=== PATIENT | male | born 2000 | race African-American/Black ===

== ENCOUNTER 2024-11-07 12:28 | Inpatient (IN) | payer SELFPAY ==
[2024-11-07 12:47] LABS: Absolute Basophils 0.1 K/uL (0-0.5); Absolute Lymphocytes (CBC) 1.6 K/uL (0.7-4.9); Absolute Monocytes 1.5 K/uL (0.1-1.3); Absolute Neutrophil 13.4 K/uL (1.8-8.0); Basophils % 0.8 % (0-1.3); Eosinophils % 0.1 % (0-4.4); Hemoglobin 15.6 g/dL (13.6-17.9); Lymphocytes % 9.7 % (15.3-44.8); MCH 29.8 pg (27.0-35.0); MCHC 31.9 g/dL (32.0-36.0); MCV 93.5 fL (80-100); MPV 7.1 fL (7.6-11.3); Monocytes % 9.2 % (3.3-12.3); Neutrophils % 80.2 % (41.7-73.7); Platelets 398 thou/uL (152-406); RBC Red Blood Cell Count 5.24 M/uL (4.33-5.43); Red Cell Distribution Width 14.2 % (12.1-15.2)
[2024-11-07 12:53] LABS: PT Prothrombin Time 13.7 SECONDS (9.4-12.5); Protime INR 1.23
[2024-11-07] MEDS ORDERED: MIDAZOLAM HCL 5 ML ONE (13:04)
[2024-11-07] MEDS ORDERED: NA CHLORIDE 0.9% 2,000 ML ONE (13:05)
[2024-11-07 13:12] LABS: Specific Gravity > 1.030 (1.005-1.030); Sqamous Epithelial None Seen /HPF (None Seen); Urine Bacteria None Seen /HPF (<20); Urine Bilirubin NEGATIVE (Negative); Urine Blood 2+ (Negative); Urine Clarity Turbid (Clear); Urine Color Yellow (Yellow); Urine Culture Reflex Order NOT NEEDED; Urine Glucose NEGATIVE (Negative); Urine Ketones 2+ (Negative); Urine Microscopic Reflex YN ORDER UMIC; Urine Mucus 2+ /HPF (None Seen); Urine Nitrite NEGATIVE (Negative); Urine Protein 2+ (Negative); Urine Urobilinogen Normal (Normal); Urine WBC <5 /HPF (<5)
[2024-11-07 13:17] LABS: Barbiturates NEGATIVE (NEGATIVE); Benzodiazepines NEGATIVE (NEGATIVE); Cocaine NEGATIVE (NEGATIVE); METHAMPHETAM NEGATIVE (NEGATIVE); Methadone NEGATIVE (NEGATIVE); Opiates NEGATIVE (NEGATIVE); Phencyclidine NEGATIVE (NEGATIVE); THC Cannibis POSITIVE (NEGATIVE)
[2024-11-07 13:17] LABS: ALT/SGPT 40 U/L (16-61); AST/SGOT 91 U/L (15-37); Albumin 4.3 g/dL (3.4-5.0); Alkaline Phosphatase 89 U/L (45-117); Anion Gap 27.5 mEq/L (5.0-15.0); BUN Blood Urea Nitrogen 21 mg/dL (7-18); Bicarbonate 11 mEq/L (21-32); Bilirubin Direct 0.4 mg/dL (0-0.2); Bilirubin Indirect, Calculated 1.3 mg/dL (0.2-0.8); Bilirubin Total 1.7 mg/dL (0.2-1.0); Creatine Phosphokinase 5483 U/L (39-308); Globulin 4.4 g/dL (2.3-3.5); Glomerular Filtration Rate 42 ml/min (=/>90); Glucose Level 234 mg/dL (74-106); Potassium 4.5 mEq/L (3.5-5.1); Protein, Total 8.7 g/dL (6.4-8.2); Sodium Level 136 mEq/L (136-145)
--- NOTE | 2024-11-07 13:44 | RAD REPORT ---
EXAMINATION: CT HEAD WITHOUT CONTRAST CLINICAL INDICATION: Male, 23 years old.agitated, AMS TECHNIQUE: Axial CT images from the skull base to the vertex without intravenous contrast. Coronal an d sagittal reformatted images were created from the data set. One or more of the following dose reduction techniques were used: Automated exposure control, adjustment of the mA and/or kV according to patient size, and/or iterative reconstruction. Unless otherwise specified, incidental findings do not require dedicated imaging follow-up. [id number]. COMPARISON: No prior exam. FINDINGS: INTRACRANIAL: No acute intracranial hemorrhage. No hydrocephalus. No mass effect or midline shift. No significant white matter disease VASCULATURE: No visualized abnormalities in the arteries or dural venous sinuses. SCALP/SKULL: No significant soft tissue or osseous abnormalities. SINUSES: The visualized paranasal sinuses and mastoid air cells are predominantly clear. IMPRESSION: No acute intracranial abnormality.
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
--- NOTE | 2024-11-07 13:56 | ER ---
Nurse's Notes [facility] Name: Justine Starr Age: 23 yrs Sex: Male : 2000 Arrival Date: 11/07/2024 Time: 12:28 Bed 4 Private MD: Diagnosis: Rhabdomyolysis;Acute kidney failure, unspecified;Restlessness and agitation Presentation: 11/07 12:32 Chief complaint: EMS states: bystander called 911 concerned for patient's well being. ss signals officer states that patient stated he was walking to [place], but became uncooperative and appeared confused. EMS reports VS 115/90 HR 160, L eye sclera reddened and pinpoint pupils. Coronavirus screen: Client denies travel out of the [place] in the last 14 days. Ebola Screen: Patient denies exposure to infectious person. Patient denies travel to an Ebola-affected area in the 21 days before illness onset. Initial Sepsis Screen: Does the patient meet any 2 criteria? No. Patient's initial sepsis screen is negative. Does the patient have a suspected source of infection? No. Patient's initial sepsis screen is negative. Risk Assessment: Do you want to hurt yourself or someone else? Patient reports no desire to harm self or others. Onset of symptoms was November 07, 2024. 12:32 Method Of Arrival: EMS: [facility] 12:32 Acuity: ZEYAD 2 Triage Assessment: 19:13 General: Appears distressed, Behavior is. bm8 Historical: - Allergies: 12:37 Unable to obtain; ss - Home Meds: 12:37 Unable to obtain [Active]; ss - PMHx: 12:37 Unable to Obtain; ss - PSHx: 12:37 Unable to Obtain; ss - Immunization history:: Adult Immunizations unknown. - Infectious Disease History:: unknown. - Social history:: Smoking status: unknown. - Unable to obtain history due to: patient being uncooperative. Screenin:00 [facility] ED Fall Risk Assessment (Adult) History of falling in the last 3 months, ko1 including since admission No falls in past 3 months (0 pts) Confusion or Disorientation No (0 pts) Intoxicated or Sedated No (0 pts) Impaired Gait No (0 pts) Mobility Assist Device Used No (0 pt) Altered Elimination No (0 pt) Score/Fall Risk Level 0 - 2 = Low Risk Oriented to surroundings, Maintained a safe environment, Educated pt \T\ family on fall prevention, incl call for assistance when getting out of bed, Assessed \T\ reinforced patient's understanding of fall precautions, Provided non-skid footwear, Hourly rounding (assess needs \T\ fall precautionary measures) done. Abuse screen: Denies threats or abuse. Nutritional screening: No deficits noted. Tuberculosis screening: No symptoms or risk factors identified. Assessment: 13:22 Reassessment: Pt to CT at this time. Vital Signs: 12:32 Pulse 143; Resp 28; Pulse Ox 96% on R/A; ss 14:02 BP 109 / 65; Pulse 121; Resp 22; Pulse Ox 98% on R/A; jl7 ED Course: 12:30 Patient arrived in ED. rn 12:30 Edmond Reese MD is Attending Physician. rn 12:37 Triage completed. ss 13:00 No provider procedures requiring assistance completed. ko1 13:00 Arm band placed on right wrist. Patient placed in an exam room, on a stretcher, on ko1 air sampling and monitoring, on pulse oximetry, Patient notified of wait time. 13:00 Patient has correct armband on for positive identification. Bed in low position. Call ko1 light in reach. Side rails up X2. Security at bedside. Provided Education on: labs. Client placed on continuous cardiac and pulse oximetry monitoring. NIBP monitoring applied. monitor worker on. Door closed. Noise minimized. Lights dimmed. Warm blanket given. Pillow given. 13:03 Urinalysis w/ reflexes Sent. ko1 13:03 Urine Drug Screen Sent. ko1 13:05 Initial lab(s) drawn, by me, sent to lab. Inserted saline lock: 20 gauge in right zm ,using aseptic technique. foot IV Blood collected. Flushed with 10 mL NS. 13:10 Car Garcia, ERNST is Primary Nurse. jl7 13:37 CT Head Brain wo Cont In Process Unspecified. EDMS 13:37 Chest Abd Pelvis Wo Con In Process Unspecified. EDMS 13:55 Justin Santos is Hospitalizing Provider. rn 16:34 Lactate w/ 2H reflex if indic. Sent. ko1 19:13 Patient admitted, IV remains in place. bm8 Administered Medications: 13:10 Drug: NS 0.9% IV 1000 ml IV at 1000 ml once; to be given as a bolus over 60 minutes jl7 Route: IV; Rate: 1000 ml; Site: Other; 15:00 Follow up: Response: No adverse reaction; IV Status: Completed infusion; IV Intake: ko1 1000ml 13:11 Drug: NS 0.9% IV 1000 ml IV at 1000 ml once; to be given as a bolus over 60 minutes jl7 Route: IV; Rate: 1000 ml; Site: Other; 18:30 Follow up: Response: No adverse reaction; IV Status: Completed infusion; IV Intake: ko1 1000ml 13:11 Drug: Midazolam IVP or IV 2 mg IVP once Route: IVP; Site: Other; 7 13:26 Follow up: Response: No adverse reaction jl7 Medication: 19:13 VIS not applicable for this client. bm8 Intake: 15:00 IV: 1000ml; Total: 1000ml. ko1 18:30 IV: 1000ml; Total: 2000ml. ko1 Outcome: 13:56 Decision to Hospitalize by Provider. rn 19:13 Admitted to ICU accompanied by nurse, via stretcher, room 4, on monitor, Report called bm8 to ernst guevara 19:13 Condition: stable 19:13 Instructed on the need for admit, Demonstrated understanding of follow-up care, 19:14 Patient left the ED. bm8 Signatures: Dispatcher [employer] EDMS Edmond Reese MD MD rn Blanchard, Shelby, RN RN ss Leal, Jahala, RN RN [email or web address] Filomena Torres Kathy, RN RN ko Sahil Hewitt RN RN bm8 Corrections: (The following items were deleted from the chart) 18:33 18:32 Abuse screen: Denies threats or abuse. ko1 ko1 18:33 18:32 [facility] ED Fall Risk Assessment (Adult) History of falling in the last 3 months, ko1 including since admission No falls in past 3 months (0 pts) Confusion or Disorientation No (0 pts) Intoxicated or Sedated No (0 pts) Impaired Gait No (0 pts) Mobility Assist Device Used No (0 pt) Altered Elimination No (0 pt) Score/Fall Risk Level 0 - 2 = Low Risk Oriented to surroundings, Maintained a safe environment, Educated pt \T\ family on fall prevention, incl call for assistance when getting out of bed, Assessed \T\ reinforced patient's understanding of fall precautions, Provided non-skid footwear, Hourly rounding (assess needs \T\ fall precautionary measures) done, ko1 18:32 Nutritional screening: No deficits noted. ko1 ko1 18:32 Tuberculosis screening: No symptoms or risk factors identified. ko1 ko1
--- NOTE | 2024-11-07 13:57 | EDPHYS ---
Physician Documentation [facility] Name: Justine Starr Age: 23 yrs Sex: Male : 2000 Arrival Date: 11/07/2024 Time: 12:28 Bed 4 Private MD: ED Physician Edmond Reese HPI: 11/07 13:00 This 23 yrs old Black Male presents to ER via EMS with complaints of Altered Mental rn Status. 13:00 The patient presents with agitation. Onset: The symptoms/episode began/occurred at an rn unknown time. Associated signs and symptoms: Pertinent positives: agitation. Current symptoms: In the emergency department the patient's symptoms have improved. It is unknown whether or not the patient has had similar symptoms in the past. Police report bystander called 911 because patient was not acting right, patient was agitated and combative. No meds given by EMS. EMS reports tachycardia and diaphoresis. Patient now a little more cooperative but still agitated and not cooperative. Patient not cooperative with history and refuses to talk to us.. Historical: - Allergies: 12:37 Unable to obtain; ss - Home Meds: 12:37 Unable to obtain [Active]; ss - PMHx: 12:37 Unable to Obtain; ss - PSHx: 12:37 Unable to Obtain; ss - Immunization history:: Adult Immunizations unknown. - Infectious Disease History:: unknown. - Social history:: Smoking status: unknown. - Unable to obtain history due to: patient being uncooperative. ROS: 13:00 Unable to obtain ROS due to patient being uncooperative, rn Exam: 12:51 ECG was reviewed by the Attending Physician. rn 13:00 Constitutional: This is a well developed, well nourished patient who is awake, alert, rn diaphoretic, uncooperative Head/Face: Abrasion to the right side of nose Eyes: Pupils equal round and reactive to light, extra-ocular motions intact. Left some conjunctival hemorrhage noted. No nystagmus ENT: Moist mucous membranes Neck: No midline cervical tenderness Cardiovascular: Tachycardic, regular Respiratory: Mild tachypnea Abdomen/GI: Soft, nontender Skin: Abrasions to bilateral feet MS/ Extremity: Pulses equal, no cyanosis. Neurovascular intact. Full, normal range of motion. Equal circumference. Neuro: Awake and alert, GCS 15 Vital Signs: 12:32 Pulse 143; Resp 28; Pulse Ox 96% on R/A; ss 14:02 BP 109 / 65; Pulse 121; Resp 22; Pulse Ox 98% on R/A; jl7 MDM: 12:30 Medical Screening Exam initiated rn 13:52 Differential Diagnosis: electrolyte abnormality, alcohol intoxication, overdose, volume rn depletion, Drug intoxication, agitation, excited delirium, rhabdo, acute kidney injury. Data reviewed: vital signs, nurses notes, lab test result(s), EKG, radiologic studies, CT scan, and as a result, I will admit patient. Consideration of Admission/Observation Patient was admitted/placed on observation. Escalation of care including admission/observation considered. Counseling: I had a detailed discussion with the patient and/or guardian regarding the historical points, exam findings, and any diagnostic results supporting the discharge/admit diagnosis, lab results, radiology results, the need for further work-up and treatment in the hospital. ED course: I personally spent 35 minutes engaged in work directly related to the individual patient's care. This does not include any time spent performing procedures. The patient has been deemed critically ill because due to excited delirium requiring IV sedation, rhabdomyolysis, fluid resuscitation due to severe tachycardia and organization of hospitalization.. 11/07 12:31 Order name: Acetaminophen; Complete Time: 13:32 rn 11/07 12:31 Order name: Basic Metabolic Panel; Complete Time: 13:32 rn 11/07 12:31 Order name: CBC with Diff; Complete Time: 13:32 rn 11/07 12:31 Order name: ETOH Level; Complete Time: 13:32 rn 11/07 12:31 Order name: Hepatic Function; Complete Time: 13:32 rn 11/07 12:31 Order name: PT-INR; Complete Time: 13:32 rn 11/07 12:31 Order name: Ptt, Activated; Complete Time: 13:32 rn 11/07 12:31 Order name: Salicylate; Complete Time: 13:32 rn 11/07 12:31 Order name: Urinalysis w/ reflexes; Complete Time: 13:32 rn 11/07 12:31 Order name: Urine Drug Screen; Complete Time: 13:32 rn 11/07 12:31 Order name: CK; Complete Time: 13:32 rn 11/07 14:51 Order name: ABG Arterial Blood Gas EDMS 11/07 15:14 Order name: Lactate w/ 2H reflex if indic. la1 11/07 16:47 Order name: Lactate w/ 2H reflex if indic.; Complete Time: 17:57 EDMS 11/07 12:32 Order name: CT Head Brain wo Cont; Complete Time: 13:48 rn 11/07 13:24 Order name: Chest Abd Pelvis Wo Con; Complete Time: 13:48 EDMS 11/07 12:31 Order name: EKG; Complete Time: 12:32 rn 11/07 12:31 Order name: EKG - Nurse/Tech; Complete Time: 13:05 rn 11/07 12:31 Order name: IV Saline Lock; Complete Time: 13:02 rn 11/07 12:31 Order name: Labs collected and sent; Complete Time: 13:02 rn EC:51 Rate is 133 beats/min. Rhythm is regular. QRS [place] is Normal. [place] interval is normal. rn QRS interval is normal. QT interval is normal. No Q waves. T waves are Normal. No ST changes noted. Clinical impression: Sinus tachycardia. Interpreted by me. Reviewed by me. Administered Medications: 13:10 Drug: NS 0.9% IV 1000 ml IV at 1000 ml once; to be given as a bolus over 60 minutes jl7 Route: IV; Rate: 1000 ml; Site: Other; 15:00 Follow up: Response: No adverse reaction; IV Status: Completed infusion; IV Intake: ko1 1000ml 13:11 Drug: NS 0.9% IV 1000 ml IV at 1000 ml once; to be given as a bolus over 60 minutes jl7 Route: IV; Rate: 1000 ml; Site: Other; 18:30 Follow up: Response: No adverse reaction; IV Status: Completed infusion; IV Intake: ko1 1000ml 13:11 Drug: Midazolam IVP or IV 2 mg IVP once Route: IVP; Site: Other; jl7 13:26 Follow up: Response: No adverse reaction jl7 Disposition: 13:52 Critical Care:. 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 Total time: 35 minutes rn Signatures: Dispatcher [employer] EDMO Edmond Reese MD MD rn Blanchard, Shelby, RN RN ss Car Garcia, RN RN jl7 Meghann Dodge, RN RN kb3 Kelsey Pedraza RN RN ko1 Corrections: (The following items were deleted from the chart) 12:32 12:31 Suicide Screening ([place]) ordered. rn rn 12:32 12:32 CREATINE PHOSPHOKINASE+C.LAB.BRZ ordered. EDMO EDMS 13:24 12:33 Chest Abdomen Pelvis W Con+CT.RAD.BRZ ordered. EDMO EDMS 16:55 13:56 rn kb3
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
[2024-11-07] MEDS ORDERED: WATER FOR INJ,STERILE 10 ML IM PRN (19:47)
[2024-11-07] MEDS ORDERED: ZIPRASIDONE MESYLA 20 MG/VIAL IM PRN (19:47)
[2024-11-07] MEDS ORDERED: ACETAMINOPHEN 325 MG TABLET PO PRN (19:47)
[2024-11-07] MEDS ORDERED: ONDANSETRON 4 MG/2 ML VIAL IV PRN (19:47)
[2024-11-07 21:03] VITALS: BMI 39.1
[2024-11-07] MEDS: NA CHLORIDE 0.9% 1,000 ML IV SCH (21:27)
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
[2024-11-08 00:54] VITALS: O2SAT 98
[2024-11-08 04:49] VITALS: BP 141/78
[2024-11-08 07:38] VITALS: TEMP 98.3
[2024-11-08] MEDS: ENOXAPARIN 40 MG/0.4 ML SQ SCH (07:45)
[2024-11-08] MEDS ORDERED: LORazepam 2 MG/ML VIAL IV PRN ×2 (08:23→08:33)
[2024-11-08] MEDS ORDERED: LORAZEPAM 1 MG TABLET PO SCH (09:00)
[2024-11-08] MEDS ORDERED: OLANZapine 10 MG TABLET PO SCH ×2 (09:00)
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
--- NOTE | 2024-11-10 12:12 | EKG ---
Test Date: 2024-11-07 Test Time: 12:46:11 Leather Scraper: HEIKE MEASUREMENT RESULTS: Intervals: Rate: 133 SC: 114 QRSD: 80 QT: 332 QTc: 494 [place]: P: 65 SC: 114 QRS: 85 T: 10 INTERPRETIVE STATEMENTS: Sinus tachycardia Right atrial enlargement Borderline ECG No previous ECG available for comparison Electronically Signed On 11-10-24 12:11:16 POT TENDER by Eric Redmond
== END 2024-11-08 07:45 | disposition left against medical advice (07) | DRG 683 ==
LOC: ER 12:28 → ERHOLD 14:49 → 3RD-ICU 19:31
PROVIDERS: ADMIT Internal Medicine; ATTEND Hospitalist
DX: N17.9 Acute kidney failure, unspecified (principal); E87.20 Acidosis, unspecified; F05 Delirium due to known physiological condition; M62.82 Rhabdomyolysis; E86.0 Dehydration; F22 Delusional disorders; S00.31XA Abrasion of nose, initial encounter; H11.32 Conjunctival hemorrhage, left eye; S90.812A Abrasion, left foot, initial encounter; S90.811A Abrasion, right foot, initial encounter; R00.0 Tachycardia, unspecified; Z53.29 Procedure and treatment not carried out because of patient's decision for other reasons
CPT/HCPCS: 36415; 70450; 71250; 74176; 80048; 80076; 80143; 80179; 80307; 81001; 82077; 82550; 83605; 85025; 85610; 85730; 93005; 96361; 96374; 99285; J2250; J3486; J7030

== ENCOUNTER 2024-11-08 17:53 | Inpatient (IN) | payer SELFPAY ==
[2024-11-08] MEDS ORDERED: NA CHLORIDE 0.9% 1,000 ML ONE ×2 (18:35→20:02)
[2024-11-08] MEDS ORDERED: LORazepam 2 MG/ML VIAL ONE (18:42)
[2024-11-08] MEDS ORDERED: DIPHENHYDRAMINE 50 MG/ML VIAL ONE (18:42)
[2024-11-08] MEDS ORDERED: NA CHLORIDE 0.9% 100 ML ONE (18:43)
[2024-11-08 18:51] LABS: Absolute Basophils 0.1 K/uL (0-0.5); Absolute Monocytes 1.5 K/uL (0.1-1.3); Absolute Neutrophil 12.8 K/uL (1.8-8.0); Basophils % 0.9 % (0-1.3); Hematocrit 41.9 % (39.6-49.0); Hemoglobin 13.6 g/dL (13.6-17.9); Lymphocytes % 6.8 % (15.3-44.8); MCH 29.9 pg (27.0-35.0); MCHC 32.5 g/dL (32.0-36.0); MCV 91.8 fL (80-100); MPV 7.2 fL (7.6-11.3); Monocytes % 9.4 % (3.3-12.3); Neutrophils % 82.9 % (41.7-73.7); Nucleated Red Blood Cells % 0.1 % (0-0); Platelets 294 thou/uL (152-406); RBC Red Blood Cell Count 4.56 M/uL (4.33-5.43); Red Cell Distribution Width 14.1 % (12.1-15.2)
[2024-11-08 18:55] LABS: Albumin 3.8 g/dL (3.4-5.0); Anion Gap 16.9 mEq/L (5.0-15.0); Bilirubin Direct 0.5 mg/dL (0-0.2); Bilirubin Indirect, Calculated 1.4 mg/dL (0.2-0.8); Bilirubin Total 1.9 mg/dL (0.2-1.0); Globulin 3.9 g/dL (2.3-3.5); Potassium 3.9 mEq/L (3.5-5.1); Protein, Total 7.7 g/dL (6.4-8.2)
--- NOTE | 2024-11-08 19:29 | ER ---
Nurse's Notes [facility] Name: Justine Starr Age: 23 yrs Sex: Male : 2000 Arrival Date: 11/08/2024 Time: 17:53 Bed 4 Private MD: Diagnosis: Rhabdomyolysis;Psychotic disorder with delusions due to known physiological condition;Dehydration Presentation: 11/08 18:01 Chief complaint: EMS states: toned out to neighborhood street for jose elias walking around ld1 altered mental status. EMS reports pt leaving ICU today AMA. Family on scene stated pt is AMS and not act like self - denies drug use, confused. Coronavirus screen: At this time, the client does not indicate any symptoms associated with coronavirus-19. Ebola Screen: No symptoms or risks identified at this time. Risk Assessment: Do you want to hurt yourself or someone else? Patient reports no desire to harm self or others. Onset of symptoms was November 08, 2024. Care prior to arrival: 5mg Versed IM. 18:01 Method Of Arrival: EMS: [facility] ld1 18:01 Acuity: ZEYAD 2 ld1 20:54 Initial Sepsis Screen: Does the patient meet any 2 criteria? HR > 90 bpm. No. Patient's bm8 initial sepsis screen is negative. Does the patient have a suspected source of infection? No. Patient's initial sepsis screen is negative. Historical: - Allergies: 18:09 No Known Allergies; iw - Home Meds: 18:09 None [Active]; iw - PMHx: 18:09 None; iw - PSHx: 18:09 None; iw - Immunization history:: Adult Immunizations. - Infectious Disease History:: Denies. - Social history:: Smoking status: unknown. Screenin:32 [facility] ED Fall Risk Assessment (Adult) History of falling in the last 3 months, bm8 including since admission No falls in past 3 months (0 pts) Confusion or Disorientation Yes (5 pts) Intoxicated or Sedated No (0 pts) Impaired Gait No (0 pts) Mobility Assist Device Used No (0 pt) Altered Elimination No (0 pt) Score/Fall Risk Level 0 - 2 = Low Risk Oriented to surroundings, Maintained a safe environment, Educated pt \T\ family on fall prevention, incl call for assistance when getting out of bed, Assessed \T\ reinforced patient's understanding of fall precautions, Hourly rounding (assess needs \T\ fall precautionary measures) done, Used ambulatory aids as needed (educated on \T\ assisted with), Used gait belt as appropriate. Abuse screen: Denies threats or abuse. Nutritional screening: No deficits noted. Tuberculosis screening: No symptoms or risk factors identified. Assessment: 18:10 Reassessment:. General: Appears. General: Appears in no apparent distress. comfortable, iw Behavior is anxious, pacing. Neuro: Level of Consciousness is awake, alert, obeys commands, Oriented to person, place, situation, Moves all extremities. Cardiovascular: Patient's skin is warm and dry. Respiratory: Respiratory effort is even, unlabored, Respiratory pattern is regular, symmetrical. Derm: Skin is intact, is healthy with good turgor. Musculoskeletal: Range of motion: intact in all extremities. 18:11 Reassessment: mother reports pt acting more unusual over the past year, stays isolated, iw spends a lot of time in his room , take 6 hour long showers. 18:39 Reassessment: after assessment by Dr. Ruelas, pt will be placed on NIMESH. iw 19:00 Reassessment: Patient appears in no apparent distress at this time. Patient and/or bm8 family updated on plan of care and expected duration. Pain level reassessed. Patient is alert, oriented x 3, equal unlabored respirations, skin warm/dry/pink. General: Appears in no apparent distress. comfortable, Behavior is calm. Pain: Denies pain. Neuro: Level of Consciousness is alert, confused, Oriented to person, place, situation, [employer] L[employer]arian are equal bilaterally Moves all extremities. Full function Gait is steady, Speech is normal. Cardiovascular: Capillary refill < 3 seconds in bilateral fingers toes Patient's skin is warm and dry. Respiratory: Airway is patent Trachea midline Respiratory effort is even, unlabored, Respiratory pattern is regular, symmetrical. 19:00 Reassessment: after speaking with mother, pt has been exhibiting isolation behavior, bm8 having auditory and visual hallucination getting worse over the past 6 months. Pt has been acting erratically talking to self and others that no one else can see. Mother specifically made mention of a recent event where the PT accused mother and grandmother of being witches telling them forcefully to change because they would get the demons on him. GI: No signs and/or symptoms were reported involving the gastrointestinal system. : No signs and/or symptoms were reported regarding the genitourinary system. EENT: No signs and/or symptoms were reported regarding the EENT system. Derm: Skin is intact, is healthy with good turgor. Musculoskeletal: Circulation, motion, and sensation intact. Range of motion: intact in all extremities. 20:32 Reassessment: Patient appears in no apparent distress at this time. No changes from bm8 previously documented assessment. Patient and/or family updated on plan of care and expected duration. Pain level reassessed. Vital Signs: 18:09 BP 118 / 89; Pulse 119; Resp 18; Pulse Ox 100% on R/A; iw 19:00 bm8 20:00 bm8 19:00 pt refuses to allow vital sign to be taken. asked to be left alone bm8 20:00 pt refused to allow vital signs to be taken. bm8 Vitals: 18:11 Cardiac Rhythm Assessment Sinus tach. iw Abdirahman Coma Score: 20:32 Eye Response: to voice(3). Motor Response: obeys commands(6). Verbal Response: bm8 confused(4). Total: 13. ED Course: 18:01 Patient arrived in ED. ld1 18:03 Triage completed. ld1 18:09 Augie Ruelas MD is Attending Physician. bo1 18:09 Claribel Briones, ERNST is Primary Nurse. iw 18:09 Arm band placed on. iw 18:31 Initial lab(s) drawn, by me, sent to lab. Inserted saline lock: 24 gauge in right hand, jl7 using aseptic technique. Blood collected. Flushed with 10 mL NS. 19:27 Justin Santos is Hospitalizing Provider. bo1 20:32 Patient has correct armband on for positive identification. Placed in gown. Bed in low bm8 position. Call light in reach. Side rails up X2. Adult w/ patient. pt refuses to allow vital sign monitoring. Door closed. Noise minimized. Warm blanket given. Pillow given. Head of bed elevated. 20:32 No provider procedures requiring assistance completed. Patient maintains SpO2 bm8 saturation greater than 95% on room air. 20:53 Provided Education on: need for admission. bm8 20:53 Patient admitted, IV remains in place. bm8 Administered Medications: 19:00 Drug: NS 0.9% IV 1000 ml IV at 1000 ml once; to be given as a bolus over 60 minutes jl7 Route: IV; Rate: 1000 ml; Site: right hand; 20:54 Follow up: Response: No adverse reaction; IV Status: Infusion continued upon admission bm8 19:01 Drug: diphenhydrAMINE IVP 50 mg IVP once Route: IVP; Site: right hand; jl7 20:26 Follow up: Response: No adverse reaction bm8 19:01 Drug: Ativan IVP 2 mg IVP once Route: IVP; Site: right hand; jl7 20:26 Follow up: Response: No adverse reaction bm8 20:26 Drug: Sodium Bicarbonate IVP 1 amp IVP once; (50 mL); equals 50 mEq Route: IVP; Site: [facility] right hand; 20:54 Follow up: Response: No adverse reaction bm8 20:26 Drug: NS 0.9% IV 1000 ml IV at 1000 ml once; to be given as a bolus over 60 minutes bm8 Route: IV; Rate: 1000 ml; Site: right hand; 20:54 Follow up: Response: No adverse reaction; IV Status: Infusion continued upon admission bm8 Medication: 18:11 VIS not applicable for this client. iw Outcome: 19:28 Decision to Hospitalize by Provider. bo1 20:53 Admitted to ICU accompanied by nurse, via stretcher, room 4, with chart, Report called bm8 to ERNST Marcus 20:53 Condition: stable 20:53 Instructed on the need for admit, Demonstrated understanding of instructions, follow-up care, 20:54 Patient left the ED. 8 Signatures: Claribel Briones RN RN iw Car Garcia RN RN jl7 Mary Mar RN RN ld1 Augie Ruelas MD MD bo1 Sahil Hewitt RN RN bm8 Corrections: (The following items were deleted from the chart) 18:09 18:03 Allergies: Unable to obtain [Inactive]; ld1 iw
--- NOTE | 2024-11-08 19:29 | EDPHYS ---
Physician Documentation [facility] Name: Justine Starr Age: 23 yrs Sex: Male : 2000 Arrival Date: 11/08/2024 Time: 17:53 Bed 4 Private MD: ED Physician Augie Ruelas HPI: 11/08 19:25 This 23 yrs old Black Male presents to ER via EMS with complaints of Altered Mental bo1 Status. 19:58 The patient presents with agitation, confusion, Elements of psychosis. Pt was bo1 originally an inpt with rhabdo and left AMA. His original CPK was 5k. Pt left and was wandering around the streets. The mother is here and providing the history. Pt was expressing some paranoia and NICHOLE from [place] is here to place the pt under an NIMESH so that medical care can be done.. Historical: - Allergies: 18:09 No Known Allergies; iw - Home Meds: 18:09 None [Active]; iw - PMHx: 18:09 None; iw - PSHx: 18:09 None; iw - Immunization history:: Adult Immunizations. - Infectious Disease History:: Denies. - Social history:: Smoking status: unknown. ROS: 20:00 Unable to obtain ROS due to patient being uncooperative, Paranoid state currently, bo1 witnessed by family (mother) [place] NICHOLE and EMS, 20:31 Constitutional: Pt will not answer, he is agitated and psychotic bo1 Exam: 20:29 Constitutional: This is a well developed, well nourished patient who is awake, alert, bo1 and in moderate acute distress. 20:29 Eyes: Conjunctiva: subconjunctival hemorrhage(s), seen in the left eye, 20:29 Neck: External neck: is normal, no acute changes, C-spine: no acute changes, 20:29 Cardiovascular: Rate: tachycardic, Rhythm: regular, 20:29 ECG was reviewed by the Attending Physician. Vital Signs: 18:09 BP 118 / 89; Pulse 119; Resp 18; Pulse Ox 100% on R/A; iw 19:00 bm8 20:00 bm8 19:00 pt refuses to allow vital sign to be taken. asked to be left alone bm8 20:00 pt refused to allow vital signs to be taken. bm8 [place] Coma Score: 20:32 Eye Response: to voice(3). Motor Response: obeys commands(6). Verbal Response: bm8 confused(4). Total: 13. MDM: 18:09 Medical Screening Exam initiated bo1 19:25 Differential Diagnosis: electrolyte abnormality, overdose, acute/chronic psychosis. bo1 Consideration of Admission/Observation Patient was admitted/placed on observation. Discussed with Dr Tom DAIGLE. 20:02 Data reviewed: vital signs, lab test result(s). Management of patient was discussed bo1 with the following: Hospitalist: Dr Tom DAIGLE. 11/08 18:10 Order name: Basic Metabolic Panel; Complete Time: 19:54 bo 11/08 18:10 Order name: CBC with Diff; Complete Time: 19:23 bo 11/08 18:10 Order name: ETOH Level; Complete Time: 19:23 bo 11/08 18:10 Order name: Hepatic Function; Complete Time: 19:54 bo 11/08 18:10 Order name: Urine Drug Screen bo 11/08 18:10 Order name: Urinalysis w/ reflexes bo 11/08 18:10 Order name: CPK; Complete Time: 19:54 bo 11/08 20:35 Order name: CBC with Automated Diff EDMS 11/08 20:35 Order name: CBC with Automated Diff EDMS 11/08 20:35 Order name: Comprehensive Metabolic Panel EDOK 11/08 20:35 Order name: Comprehensive Metabolic Panel EDOK 11/08 20:35 Order name: Magnesium EDMS 11/08 20:35 Order name: Magnesium EDMS 11/08 20:35 Order name: Phosphorus EDMS 11/08 20:35 Order name: Phosphorus EDMS 11/08 18:10 Order name: EKG; Complete Time: 18:10 bo 11/08 20:30 Order name: CONS Physician Consult EDOK 11/08 18:10 Order name: EKG - Nurse/Tech; Complete Time: 18:58 bo 11/08 18:10 Order name: IV Saline Lock; Complete Time: 18:31 bo 11/08 18:10 Order name: Labs collected and sent; Complete Time: 18:31 bo1 EC:29 Rate is 110 beats/min. Rhythm is regular. QRS [place] is Normal. HI interval is normal. bo1 QRS interval is normal. QT interval is normal. No Q waves. T waves are Normal. No ST changes noted. Clinical impression: Sinus tachycardia. Interpreted by me. Reviewed by me. Administered Medications: 19:00 Drug: NS 0.9% IV 1000 ml IV at 1000 ml once; to be given as a bolus over 60 minutes jl7 Route: IV; Rate: 1000 ml; Site: right hand; 20:54 Follow up: Response: No adverse reaction; IV Status: Infusion continued upon admission bm8 19:01 Drug: diphenhydrAMINE IVP 50 mg IVP once Route: IVP; Site: right hand; jl7 20:26 Follow up: Response: No adverse reaction bm8 19:01 Drug: Ativan IVP 2 mg IVP once Route: IVP; Site: right hand; jl7 20:26 Follow up: Response: No adverse reaction bm8 20:26 Drug: Sodium Bicarbonate IVP 1 amp IVP once; (50 mL); equals 50 mEq Route: IVP; Site: 8 right hand; 20:54 Follow up: Response: No adverse reaction bm8 20:26 Drug: NS 0.9% IV 1000 ml IV at 1000 ml once; to be given as a bolus over 60 minutes bm8 Route: IV; Rate: 1000 ml; Site: right hand; 20:54 Follow up: Response: No adverse reaction; IV Status: Infusion continued upon admission bm8 Disposition Summary: 11/08/24 19:28 Hospitalization Ordered Notes: Hospitalization Status: Inpatient Admission bo1 Provider: Justin Santos bo Condition: Fair bo1 Problem: an ongoing problem bo1 Symptoms: are unchanged bo1 Bed/Room Type: Standard [facility] Location: Intensive Care Unit(11/08/24 20:41) vk Room Assignment: 4-(11/08/24 20:41) vk Diagnosis - Rhabdomyolysis bo1 - Psychotic disorder with delusions due to known physiological condition bo1 - Dehydration bo1 Forms: - Medication Reconciliation Form bo1 - SBAR form bo1 - Leadership Thank You Letter bo1 Signatures: Dispatcher [employer] Claribel Bowman RN RN iw Car Garcia RN RN jl7 Mary Mar RN RN raman1 Elza Hung Benjamin, MD MD bo1 Sahil Hewitt RN RN bm8 Corrections: (The following items were deleted from the chart) 18:09 18:03 Allergies: Unable to obtain [Inactive]; ld1 iw 18:10 18:10 BASIC METABOLIC PANEL+C.LAB.BRZ ordered. EDMS EDMS 18:10 18:10 CBC+H.LAB.BRZ ordered. EDMS EDMS 18:10 18:10 ETHANOL+C.LAB.BRZ ordered. EDMS EDMS 18:10 18:10 HEPATIC FUNCTION+C.LAB.BRZ ordered. EDMS EDMS 18:10 18:10 URINE DRUG SCREEN+UC.LAB.BRZ ordered. EDMS EDMS 20:41 19:28 Telemetry/MedSurg (Inpatient) bo1 vk 20:41 19:28 bo1 vk
--- NOTE | 2024-11-08 20:25 | P.HP ---
Certification for Inpatient Patient admitted to: Inpatient With expected LOS: >2 Midnights Practitioner: I am a practitioner with admitting privileges, knowledge of patient current condition, hospital course, and medical plan of care. Services: Services provided to patient in accordance with Admission requirements found in Title 42 Section 412.3 of the Code of Federal Regulations Patient History Date of Service: 11/08/24 History of Present Illness: 23-year-old young male without any medical history was found walking down the street, had been reported missing by his family and brought to the emergency department yesterday for evaluation. Patient was evaluated and admitted for elevated CK and acute kidney injury. There was concern for acute psychosis and the plan was to arrange for inpatient psych once patient is clinically stable. According to report patient eloped today. He was found wandering again by the police. He was brought to the emergency department. Workup in the emergency department today shows leukocytosis, LAUREN and worsening rhabdomyolysis, patient noted to be tachycardic. According to report patient placed on TDO and he is being admitted for management of the rhabdomyolysis with LAUREN before transfer to inpatient psych once medically stable. Patient was given Benadryl and Ativan prior to my examination and was noted to be calm and cooperative. Urine toxicology screen during my examination was still pending. Allergies No Known Allergies Allergy (Unverified 11/07/24 19:47) Home Medications: NK [No Home Meds] 11/08/24 - Past Medical/Surgical History Diabetic: No -: None -: None Psychosocial/ Personal History: Lives at home with his family - Social History Alcohol use: Yes CD- Drugs: Yes Caffeine use: No Physical Examination - Physical Exam General: Alert, In no apparent distress, Oriented x3, Obese HEENT: Atraumatic, Mucous membr. moist/pink, Sclerae nonicteric Neck: Supple, JVD not distended Respiratory: Clear to auscultation bilaterally, Normal air movement Cardiovascular: No edema, Normal S1 S2, Other Capillary refill: <2 Seconds Gastrointestinal: Normal bowel sounds, Soft and benign, Non-distended, No tenderness Musculoskeletal: No swelling, No tenderness Integumentary: No rashes, No cyanosis Neurological: Normal strength at 5/5 x4 extr, Cranial nerves 3-12 intact Lymphatics: No axilla or inguinal lymphadenopathy - Studies Laboratory Data (last 24 hrs) 11/08/24 11/08/24 18:29 18:29 WBC 15.40 H Hgb 13.6 Hct 41.9 Plt Count 294 Sodium 142 Potassium 3.9 BUN 19 H Creatinine 2.08 H Glucose 107 H Total Bilirubin 1.9 H AST 211 H ALT 63 H Alkaline Phosphatase 71 Assessment and Plan - Plan Diagnosis Rhabdomyolysis Acute kidney injury Anion gap metabolic acidosis History of repeated head trauma Behavioral issues including aggression/seclusion Plan: Rhabdomyolysis Acute kidney injury Anion gap metabolic acidosis UDS positive for THC previous admit. UDS today is pending. Aggressive IV fluid hydration with NS Consult nephrology Monitor renal function, and cpk. Leukocytosis SIRS related to dehydration and not infection/sepsis. Behavioral issues including aggressionseclusion Acute psychosis suspected, possible schizophrenia. History of violent outbursts. Wandering. Patient currrently on TDO. Psychiatry consult. Patient may benefit from inpatient psychiatry admission pending behavioral healt assessment. DVT PPX: Heparin Advanced Directive: full code - Advance Directives Does patient have a Living Will: No Does patient have a Durable POA for Healthcare: No
[2024-11-08] MEDS ORDERED: HALOPERIDOL LACT 5 MG/ML INJ IM PRN (20:29)
[2024-11-08] MEDS ORDERED: LORazepam 2 MG/ML VIAL IV PRN (20:29)
[2024-11-08] MEDS ORDERED: ACETAMINOPHEN 325 MG TABLET PO PRN (20:29)
[2024-11-08] MEDS: NA CHLORIDE 0.9% 1,000 ML IV SCH (21:00)
[2024-11-09 05:54] LABS: Absolute Basophils 0.2 K/uL (0-0.5); Absolute Lymphocytes (CBC) 1.6 K/uL (0.7-4.9); Absolute Monocytes 1.6 K/uL (0.1-1.3); Absolute Neutrophil 8.1 K/uL (1.8-8.0); Basophils % 1.4 % (0-1.3); Eosinophils % 0.4 % (0-4.4); Hematocrit 37.9 % (39.6-49.0); Hemoglobin 12.6 g/dL (13.6-17.9); MCH 30.2 pg (27.0-35.0); MCHC 33.2 g/dL (32.0-36.0); MCV 91.1 fL (80-100); MPV 6.8 fL (7.6-11.3); Monocytes % 14.1 % (3.3-12.3); Neutrophils % 70.1 % (41.7-73.7); Platelets 292 thou/uL (152-406); RBC Red Blood Cell Count 4.16 M/uL (4.33-5.43); Red Cell Distribution Width 13.8 % (12.1-15.2)
[2024-11-09 06:16] LABS: Albumin 3.1 g/dL (3.4-5.0); Albumin/Globulin Ratio 0.9 (1.1-1.8); Anion Gap 9.7 mEq/L (5.0-15.0); Bilirubin Total 2.3 mg/dL (0.2-1.0); Globulin 3.5 g/dL (2.3-3.5); Magnesium 2.5 mg/dL (1.6-2.4); Potassium 3.7 mEq/L (3.5-5.1); Protein, Total 6.6 g/dL (6.4-8.2)
--- NOTE | 2024-11-09 07:40 | P.PN ---
Date of Service: 11/09/24 Subjective: ROS: 10 point ROS as noted above, otherwise negative Physical Exam: GEN: Alert, oriented, NAD CV: Regular rate and rhythm, no edema Pulm: Nonlabored respirations on room air, clear bilaterally ABD: soft, nontender, nondistended Integumentary: No rashes Neuro: Normal speech, normal affect Problem List: Rhabdomyolysis LAUREN Anion gap metabolic acidosis Leukocytosis Elevated LFTs History of repeated head trauma Behavioral issues including aggression/seclusion Rhabdomyolysis LAUREN Anion gap metabolic acidosis Patient readmitted after eloping from ICU 11/08. Initially presented with agitation, tachycardia. Initial labwork noted elevated CK, creatinine. Nephrology consulted Continue IV fluids UDS positive for THC previous admit. repeat UDS pending. continue to monitor renal function, cpk. monitor and replete electrolytes as needed Patient may benefit from inpatient psych eval once more clinically stable. Creatinine, CPK improving PRN haldol/ativan as needed for agitation. Leukocytosis SIRS related to dehydration and not infection/sepsis. Continue to monitor. Daily labs. Elevated LFTs likely related to rhabdo/dehydration Continue to monitor. Daily labs Behavioral issues including aggressionseclusion Acute psychosis suspected, possible schizophrenia. History of violent outbursts. Wandering. Patient currrently on TDO. Psychiatry consult. Patient may benefit from inpatient psych eval once more clinically stable. PRN haldol/ativan as needed for agitation Start Zyprexa VTE: Code: Full Dispo: Home Time Spent Managing Pts Care (In Minutes): 55
[2024-11-09] MEDS: POTASSIUM CL SA 10 MEQ TAB PO ONE (07:42)
[2024-11-09] MEDS: OLANZapine 2.5 MG TAB PO SCH (08:48)
[2024-11-09 13:50] LABS: Specific Gravity 1.014 (1.005-1.030); Sqamous Epithelial None Seen /HPF (None Seen); Urine Bacteria None Seen /HPF (<20); Urine Bilirubin NEGATIVE (Negative); Urine Blood Negative (Negative); Urine Clarity Clear (Clear); Urine Color Light-Yellow (Yellow); Urine Culture Reflex Order NOT NEEDED; Urine Glucose NEGATIVE (Negative); Urine Ketones 1+ (Negative); Urine Microscopic Reflex YN ORDER UMIC; Urine Nitrite NEGATIVE (Negative); Urine Protein NEGATIVE (Negative); Urine RBC <5 /HPF (None Seen); Urine Urobilinogen Normal (Normal); Urine WBC <5 /HPF (<5); Urine pH 5.5 (5.0-7.0)
[2024-11-09 14:01] LABS: Barbiturates NEGATIVE (NEGATIVE); Benzodiazepines POSITIVE (NEGATIVE); Cocaine NEGATIVE (NEGATIVE); METHAMPHETAM NEGATIVE (NEGATIVE); Methadone NEGATIVE (NEGATIVE); Opiates NEGATIVE (NEGATIVE); Phencyclidine NEGATIVE (NEGATIVE); THC Cannibis POSITIVE (NEGATIVE)
[2024-11-09] MEDS: LORAZEPAM 1 MG TABLET PO ONE (18:14)
[2024-11-09] MEDS: LORAZEPAM 0.5 MG TABLET PO ONE (19:28)
[2024-11-09] MEDS: Mupirocin NASAL 2 APPL/1 GM TUBE NAS SCH (21:00)
[2024-11-09 23:54] VITALS: O2SAT 99
[2024-11-10 00:01] VITALS: BMI 40.4
[2024-11-10 01:24] VITALS: TEMP 98.6
[2024-11-10 04:11] VITALS: BP 153/84
[2024-11-10 05:26] LABS: Absolute Basophils 0.1 K/uL (0-0.5); Absolute Eosinophils 0.1 K/uL (0-0.5); Absolute Monocytes 1.4 K/uL (0.1-1.3); Absolute Neutrophil 6.7 K/uL (1.8-8.0); Basophils % 1.2 % (0-1.3); Eosinophils % 0.7 % (0-4.4); Hematocrit 37.1 % (39.6-49.0); Hemoglobin 12.5 g/dL (13.6-17.9); Lymphocytes % 19.4 % (15.3-44.8); MCH 30.5 pg (27.0-35.0); MCHC 33.6 g/dL (32.0-36.0); MCV 90.9 fL (80-100); MPV 7.2 fL (7.6-11.3); Monocytes % 13.5 % (3.3-12.3); Neutrophils % 65.2 % (41.7-73.7); Nucleated Red Blood Cells % 0.1 % (0-0); Platelets 290 thou/uL (152-406); RBC Red Blood Cell Count 4.08 M/uL (4.33-5.43); Red Cell Distribution Width 13.5 % (12.1-15.2)
[2024-11-10 06:16] LABS: Albumin 3.2 g/dL (3.4-5.0); Albumin/Globulin Ratio 0.9 (1.1-1.8); Anion Gap 9.4 mEq/L (5.0-15.0); Bilirubin Total 1.5 mg/dL (0.2-1.0); Globulin 3.4 g/dL (2.3-3.5); Magnesium 2.1 mg/dL (1.6-2.4); Phosphorus 2.6 mg/dL (2.5-4.9); Potassium 3.4 mEq/L (3.5-5.1); Protein, Total 6.6 g/dL (6.4-8.2)
--- NOTE | 2024-11-10 06:41 | P.PN ---
Date of Service: 11/09/24 Subjective: reports he is "good" not wanting to answer my questions pacing back and forth in room, and outside of room non-combative, but not very cooperative either ROS: 10 point ROS limited - patient not wanting to answer questions Physical Exam: GEN: Alert, oriented, NAD; left conjunctival hemorrhage CV: Regular rate and rhythm, no edema Pulm: Nonlabored respirations on room air Neuro: Normal speech, moves all extremities equally not wanting to answer questions, some paranoia Problem List: Rhabdomyolysis LAUREN Anion gap metabolic acidosis Leukocytosis Elevated LFTs Behavioral issues including aggression/seclusion Rhabdomyolysis LAUREN Anion gap metabolic acidosis Patient readmitted after eloping from ICU 11/08. Initially presented with agitation, tachycardia. Initial labwork noted elevated CK, creatinine. reportedly tazed by police 2-3 times prior to presentation, which would contribute to elevated CPK Nephrology consulted Continue IV fluids - IV stopped working this morning. patient refusing replacement, will try again throughout the day ok to hold off for brief period and attempt less confrontational approach. UDS positive for THC previous admit. repeat UDS pending. continue to monitor renal function, cpk Creatinine, CPK improving monitor and replete electrolytes as needed Patient would benefit from inpatient psych eval once more clinically stable. - anticipate tomorrow PRN haldol/ativan as needed for agitation. Leukocytosis SIRS related to dehydration and not infection/sepsis. Continue to monitor. Daily labs. Elevated LFTs likely related to rhabdo/dehydration Continue to monitor. Daily labs Behavioral issues including aggressionseclusion Acute psychosis suspected, possible schizophrenia. History of violent outbursts. Wandering. Patient currrently on NIMESH. Psychiatry consult. Patient would benefit from inpatient psych eval once more clinically stable. PRN haldol/ativan as needed for agitation Start Zyprexa - pt refused Time Spent Managing Pts Care (In Minutes): 55
--- NOTE | 2024-11-10 08:54 | P.PN ---
Date of Service: 11/10/24 Subjective: Was refusing IV access overnight Given ED and was present police came to bedside Patient ultimately was agreeable to IV, IV fluids Renal function improving Medically stable for psychiatric evaluation Calm, cooperative, oriented this morning ROS: 10 point ROS as noted above, otherwise negative Physical Exam: GEN: Alert, oriented, NAD CV: Regular rate and rhythm, no edema Pulm: Nonlabored respirations on room air, clear bilaterally ABD: soft, nontender, nondistended Integumentary: No rashes Neuro: Normal speech, normal affect Problem List: Rhabdomyolysis LAUREN Anion gap metabolic acidosis Leukocytosis Elevated LFTs History of repeated head trauma Behavioral issues including aggression/seclusion Rhabdomyolysis LAUREN Anion gap metabolic acidosis Patient readmitted after eloping from ICU 11/08. Initially presented with agitation, tachycardia. Initial labwork noted elevated CK, creatinine. Renal function, CPK improving UDS positive for THC previous admit. repeat UDS with THC, benzodiazepines monitor and replete electrolytes as needed [facility], psychiatry consulted to evaluate patient as he is medically stable today PRN haldol/ativan as needed for agitation. Await recs from [facility] Leukocytosis SIRS related to dehydration and not infection/sepsis. Continue to monitor. Daily labs. Elevated LFTs likely related to rhabdo/dehydration Improving with IV fluids alongside renal function, CPK Behavioral issues including aggressionseclusion Acute psychosis suspected, possible schizophrenia. History of violent outbursts. Wandering. Patient currrently on NIMESH. Psychiatry consult. Patient would benefit from inpatient psych eval once more clinically stable. PRN haldol/ativan as needed for agitation Start Zyprexa-patient refused Patient denies auditory or visual hallucinations Denies HI/SI
[2024-11-10] MEDS: POTASSIUM 25 MEQ EFFERV TAB PO ONE (09:02)
--- NOTE | 2024-11-11 12:47 | EKG ---
Test Date: 2024-11-08 Test Time: 18:54:43 Reconditioner: TIO MEASUREMENT RESULTS: Intervals: Rate: 110 ID: [id number] QRSD: 92 QT: 344 QTc: 465 [place]: P: 58 ID: [id number] QRS: 67 T: 26 INTERPRETIVE STATEMENTS: Sinus tachycardia Otherwise normal ECG Compared to ECG 11/07/2024 12:46:11 Atrial abnormality no longer present Electronically Signed On 11-11-24 12:42:37 ARCHITECTURAL DESIGN LECTURER by Eric Redmond
== END 2024-11-10 19:20 | DRG 885 ==
LOC: ER 17:53 → ERHOLD 20:26 → 3RD-ICU 21:30
PROVIDERS: ADMIT Internal Medicine; ATTEND Hospitalist
DX: F23 Brief psychotic disorder (principal); M62.82 Rhabdomyolysis; N17.9 Acute kidney failure, unspecified; Z68.41 Body mass index [BMI] 40.0-44.9, adult; E87.20 Acidosis, unspecified; R65.10 Systemic inflammatory response syndrome (SIRS) of non-infectious origin without acute organ dysfunction; E66.9 Obesity, unspecified; F22 Delusional disorders; E86.0 Dehydration; D72.829 Elevated white blood cell count, unspecified; R00.0 Tachycardia, unspecified; R79.89 Other specified abnormal findings of blood chemistry
CPT/HCPCS: 36415; 80048; 80053; 80076; 80307; 81001; 82077; 82550; 83735; 84100; 85025; 93005; 96361; 96374; 96375; 99285; J1200; J7030